=== PATIENT | female | born 1995 | race Caucasian/White ===

== ENCOUNTER 2017-01-15 13:59 | Emergency (ER) | payer OTHER ==
[2017-01-15 14:24] VITALS: BP 130/66; PULSE 85; RESP 18; TEMP 98.4; O2SAT 98
[2017-01-15] MEDS ORDERED: IBUPROFEN 600 MG TAB PO ONE (14:39)
[2017-01-15] MEDS ORDERED: AZITHROMYCIN 250 MG TAB PO ONE (15:39)
[2017-01-15] MEDS ORDERED: CEFTRIAXONE IM 350 MG/ML SYRINGE IM ONE (15:39)
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
== END 2017-01-15 18:30 | disposition home or self-care (01) ==
LOC: EEVIPCON 13:59
DX: T74.21XA Adult sexual abuse, confirmed, initial encounter (principal); Y07.9 Unspecified perpetrator of maltreatment and neglect; Y92.009 Unspecified place in unspecified non-institutional (private) residence as the place of occurrence of the external cause
CPT/HCPCS: J0696